=== PATIENT | male | born 1965 | race Two or more races ===

== ENCOUNTER → 2023-01-20 | Emergency (ER) | payer OTHER ==
[~2023-01-20] VITALS: Ht 198.1 cm; Wt 86.2 kg
[2023-01-20 14:51] LABS: HEMATOCRIT 44.9 % (39.0-48.0); MEAN CELL VOLUME 100.5 fL (80.0-100.00); MEAN CORPUSCULAR HEMOGLOBIN 35.8 pg (27.00-32.0); MEAN CORPUSCULAR HGB CONC 35.6 g/dl (32.0-36.0); RED BLOOD COUNT 4.47 M/uL (4.00-6.00); RED CELL DISTRIBUTION WIDTH 13.8 % (11.5-14.5)
[2023-01-20 14:52] LABS: AMYLASE 24 U/L (25-115); LIPASE 42 U/L (13-75); PLATELET COUNT 69 K/uL (150-450)
[2023-01-20 14:55] LABS: CALCIUM 8.7 mg/dL (8.5-10.1); CREATININE SERUM 0.65 mg/dL (0.70-1.30); GFR 125.73; POTASSIUM 3.53 mEq/L (3.5-5.1)
[2023-01-20 15:00] LABS: URINE APPEARANCE Clear; URINE BILIRRUBIN Small (NEGATIVE); URINE BLOOD Negative; URINE COLOR Dark Yellow; URINE GLUCOSE Negative (NEGATIVE); URINE LEUKOCYTE Trace; URINE NITRATE Negative; URINE PROTEIN Trace (NEGATIVE)
[2023-01-20 15:04] LABS: URINE BACTERIA 20.1 uL (0.0-1933); URINE EPITHELIAL CELLS 3.8 uL (0.0-38.8); URINE WBC 8.4 uL (0.0-23.2)
== END | disposition home or self-care (01) ==
LOC: ER 13:22
PROVIDERS: Emergency Medicine
DX: K29.70 Gastritis, unspecified, without bleeding (principal); F10.20 Alcohol dependence, uncomplicated